=== PATIENT | male | born 1985 | race African-American/Black ===

== ENCOUNTER 2024-05-06 03:32 | Emergency (ER) | payer MEDICAID ==
[~2024-05-06] VITALS: Ht 175.3 cm; Wt 83.9 kg
[2024-05-06 06:02] VITALS: BP 145/86; TEMP 98.5; O2SAT 100
== END 2024-05-06 06:02 | disposition home or self-care (01) ==
LOC: ER 03:35
DX: R09.A2 Foreign body sensation, throat (principal); J45.909 Unspecified asthma, uncomplicated
CPT/HCPCS: 70490-TC